=== PATIENT | male | born 1970 | race Two or more races ===

== ENCOUNTER 2022-12-15 18:39 | Emergency (ER) | payer OTHER ==
[~2022-12-15] VITALS: Ht 167.6 cm; Wt 97.3 kg
[2022-12-15] MEDS ORDERED: IBUP800T27 PO (21:38)
[2022-12-15] MEDS ORDERED: CYCL-837 PO (21:38)
[2022-12-15 22:37] VITALS: BP 138/88
== END 2022-12-15 22:40 | disposition home or self-care (01) ==
LOC: ER 18:39
DX: S46.911A Strain of unspecified muscle, fascia and tendon at shoulder and upper arm level, right arm, initial encounter (principal); X50.9XXA Other and unspecified overexertion or strenuous movements or postures, initial encounter; Y93.89 Activity, other specified; Y92.89 Other specified places as the place of occurrence of the external cause; Y99.8 Other external cause status
CPT/HCPCS: 73030